=== PATIENT | male | born 1960 | race Caucasian/White ===

== ENCOUNTER 2021-02-04 22:00 | Emergency (ER) | payer MEDICAID ==
[~2021-02-04] VITALS: Ht 180.3 cm; Wt 88.5 kg
[2021-02-04 23:35] LABS: Basophils # (auto) 0 10 ^3/uL (0-0.2); Basophils % (auto) 0.7 % (0.0-2.0); Eosinophils # (auto) 0.1 10 ^3/uL (0-0.8); Eosinophils % (auto) 2.4 % (0.0-7.0); Hemoglobin 13.4 g/dL (13.5-17.5); Lymphocytes # (auto) 0.9 10 ^3/uL (0.4-5.4); Lymphocytes % (auto) 18.5 % (10.0-50.0); Mean Corpuscular Hemoglobin 30.9 pg (28.0-32.0); Mean Corpuscular Hgb Conc. 33.4 g/dL (32.0-36.0); Mean Corpuscular Volume 92.4 fL (80.0-100.0); Monocytes # (auto) 0.6 10 ^3/uL (0-1.3); Monocytes % (auto) 12.6 % (0.0-12.0); Neutrophils # (auto) 3.2 10 ^3/uL (1.6-8.6); Neutrophils % (auto) 65.8 % (37.0-80.0); Nucleated Red Blood Cells % 0.1 %; Red Blood Cells 4.33 10^6/uL (4.5-5.90); Red Cell Distribution Width 14.1 % (11.8-14.3); White Blood Cell 4.8 10^3/uL (4.4-10.8)
[2021-02-04 23:55] LABS: Albumin 2.9 g/dL (3.4-5.0); Calcium 8.8 mg/dL (8.5-10.1)
[2021-02-04 23:58] LABS: BUN/Creatinine Ratio 17.6
[2021-02-05] LABS: Total Protein 8.3 g/dL (6.4-8.2)
[2021-02-05 02:00] VITALS: BP 178/96
[2021-02-05] MEDS ORDERED: DOXY-286 PO (02:45)
[2021-02-05] MEDS ORDERED: BAC09TP TOP (02:45)
[2021-02-05] MEDS ORDERED: BACITRACIN TOP OINT 1 UD PKG TOP ONE (03:00)
[2021-02-05] MEDS ORDERED: DOXYCYCLINE 100 MG TAB/CAP PO ONE (03:00)
== END 2021-02-05 03:27 | disposition home or self-care (01) ==
LOC: ER 22:01
DX: L03.116 Cellulitis of left lower limb (principal); I10 Essential (primary) hypertension; F17.210 Nicotine dependence, cigarettes, uncomplicated; F12.10 Cannabis abuse, uncomplicated; F15.10 Other stimulant abuse, uncomplicated
CPT/HCPCS: 36415; 80053; 83605; 85025; 87040

== ENCOUNTER 2022-09-08 13:47 | Emergency (ER) | payer MEDICAID ==
[~2022-09-08 13:47] MED LIST: BAC09TP TOP
[2022-09-08] MEDS ORDERED: DexAMETHasone SOD PHOS 10MG/1ML VIAL INJ ONE (13:57)
[2022-09-08] MEDS ORDERED: DexAMETHasone SOD PHOS 10MG/1ML VIAL INJ IV ONE (14:00)
[2022-09-08] MEDS ORDERED: ALBUTEROL SULF 2.5 MG/0.5ML(0.5%) NEB SOLN NEB ONE (14:00)
[2022-09-08] MEDS ORDERED: SODIUM CHLORIDE 0.9% 1,000 ML IVB ONE (14:00)
[2022-09-08] MEDS ORDERED: DOXYCYCLINE 100MG/250ML 250 ML IV ONE (14:00)
[2022-09-08] MEDS ORDERED: IPRATROPIUM BROM 0.5 MG/2.5ML INH SOL NEB ONE (14:00)
[2022-09-08] MEDS ORDERED: METOPROLOL TARTRATE 1MG/1ML-5ML VIAL IV ONE (14:15)
[2022-09-08 14:17] LABS: Basophils # (auto) 0 10 ^3/uL (0-0.2); Eosinophils # (auto) 0 10 ^3/uL (0-0.8); Hematocrit 45.6 % (41.0-53.0); Lymphocytes # (auto) 0.7 10 ^3/uL (0.4-5.4); Lymphocytes % (auto) 7.4 % (10.0-50.0); Mean Corpuscular Hemoglobin 31.6 pg (28.0-32.0); Mean Corpuscular Hgb Conc. 32.8 g/dL (32.0-36.0); Mean Corpuscular Volume 96.3 fL (80.0-100.0); Monocytes # (auto) 0.4 10 ^3/uL (0-1.3); Monocytes % (auto) 4.5 % (0.0-12.0); Neutrophils # (auto) 8.7 10 ^3/uL (1.6-8.6); Neutrophils % (auto) 88.1 % (37.0-80.0); Nucleated Red Blood Cells % 0.1 %; Red Blood Cells 4.74 10^6/uL (4.5-5.90); Red Cell Distribution Width 16.1 % (11.8-14.3); White Blood Cell 9.8 10^3/uL (4.4-10.8)
[2022-09-08 14:33] LABS: INR 1.28 (0.9-1.15); Partial Thromboplastin Time 32.4 sec (24.6-33.4)
[2022-09-08 14:37] LABS: Albumin 3.1 g/dL (3.4-5.0); Calcium 8.2 mg/dL (8.5-10.1); Magnesium 1.6 mg/dL (1.6-2.6); Potassium 3.6 mmol/L (3.5-5.1)
[2022-09-08 14:40] LABS: BUN/Creatinine Ratio 11.5 (10.0-20.0); Bilirubin, Total 3.8 mg/dL (0.2-1.0); Total Protein 8.4 g/dL (6.4-8.2)
[2022-09-08] MEDS ORDERED: LORazepam 2MG/ML-1ML VIAL ONE (14:50)
[2022-09-08 14:53] LABS: Lactic Acid w/Reflex 4.6 mmol/L (0.4-2.0)
[2022-09-08] MEDS ORDERED: LORazepam 2MG/ML-1ML VIAL IV ONE (15:00)
[2022-09-08] MEDS: MAGNESIUM SULFATE 1GM/100ML 100 ML IV SCH ×3 (15:08→15:29)
[2022-09-08] MEDS ORDERED: FUROSEMIDE 40 MG/4 ML VIAL IV ONE (15:45)
[2022-09-08 15:53] VITALS: BP 105/60
== END 2022-09-08 16:25 | disposition left against medical advice (07) ==
LOC: EDBD 13:47 → ER 13:47
DX: R06.02 Shortness of breath (principal); I48.91 Unspecified atrial fibrillation; J44.9 Chronic obstructive pulmonary disease, unspecified; I25.2 Old myocardial infarction; I10 Essential (primary) hypertension; E78.5 Hyperlipidemia, unspecified; F15.10 Other stimulant abuse, uncomplicated; F12.10 Cannabis abuse, uncomplicated; F17.210 Nicotine dependence, cigarettes, uncomplicated; Z88.5 Allergy status to narcotic agent
CPT/HCPCS: 36415; 36600; 71045; 80053; 82805; 83605; 83735; 83880; 84484; 85025; 85379; 85610; 85730; 87040; 93005; 94660; 96365; 96368; 96375; 99285; J1100; J1940; J2060; J3475; J3490; J7644

== ENCOUNTER 2022-09-09 00:23 | Inpatient (IN) | payer MEDICAID ==
[2022-09-09] VITALS (36 sets, daily range): BP systolic 81–171; BP diastolic 6–67
[~2022-09-09] VITALS: Ht 180.3 cm; Wt 115.6 kg
[2022-09-09] MEDS ORDERED: ALBUTEROL SULF 2.5 MG/0.5ML(0.5%) NEB SOLN ONE (00:26)
[2022-09-09] MEDS ORDERED: IPRATROPIUM BROM 0.5 MG/2.5ML INH SOL ONE (00:27)
[2022-09-09] MEDS ORDERED: NITROGLYCERIN 2% OINT 1GM PKG TD STA (00:40)
[2022-09-09] MEDS ORDERED: MORPHINE SULFATE 4 MG/ML SYR/VIAL IV ONE (00:45)
[2022-09-09] MEDS ORDERED: ASPirin 81 mg TAB PO ONE (00:45)
[2022-09-09] MEDS ORDERED: ONDANSETRON HCL 4 MG/2 ML VIAL IV ONE ×2 (00:45→07:15)
[2022-09-09] MEDS ORDERED: FUROSEMIDE 40 MG/4 ML VIAL IV ONE ×2 (00:45→04:00)
[2022-09-09] MEDS ORDERED: ACETAMINOPHEN 325 MG TAB PO PRN (00:45)
[2022-09-09] MEDS ORDERED: VANCOMYCIN 1GM/250ML 250 ML IV ONE ×2 (01:00→10:00)
[2022-09-09] MEDS ORDERED: diphenhdrAMINE HCL 50 MG/1 ML VL IV ONE ×2 (01:15)
[2022-09-09] MEDS: PIPERACILLIN-TAZOB 3.375GM 100 ML IV SCH ×4 (01:23→21:15)
[2022-09-09] MEDS ORDERED: DEXTROSE 10% 250 ML IV ONE ×2 (01:35→08:27)
[2022-09-09 01:41] LABS: Basophils # (auto) 0 10 ^3/uL (0-0.2); Basophils % (auto) 0.3 % (0.0-2.0); Eosinophils # (auto) 0 10 ^3/uL (0-0.8); Hematocrit 46.1 % (41.0-53.0); Hemoglobin 14.9 g/dL (13.5-17.5); Lymphocytes # (auto) 1.2 10 ^3/uL (0.4-5.4); Lymphocytes % (auto) 9.9 % (10.0-50.0); Mean Corpuscular Hemoglobin 31.6 pg (28.0-32.0); Mean Corpuscular Hgb Conc. 32.3 g/dL (32.0-36.0); Mean Corpuscular Volume 97.9 fL (80.0-100.0); Monocytes # (auto) 0.3 10 ^3/uL (0-1.3); Monocytes % (auto) 2.4 % (0.0-12.0); Neutrophils # (auto) 10.5 10 ^3/uL (1.6-8.6); Neutrophils % (auto) 87.4 % (37.0-80.0); Nucleated Red Blood Cells % 0.2 %; Red Blood Cells 4.71 10^6/uL (4.5-5.90); Red Cell Distribution Width 16.2 % (11.8-14.3)
[2022-09-09] MEDS ORDERED: DEXTROSE 10% 250 ML IV SCH (01:45)
[2022-09-09 01:55] LABS: INR 1.56 (0.9-1.15); Partial Thromboplastin Time 38.3 sec (24.6-33.4)
[2022-09-09] MEDS ORDERED: KETOROLAC TROMETH 30 MG/ML 1ML VIAL IV ONE (02:00)
[2022-09-09] MEDS ORDERED: D5W/SOD CHLO 0.9% 1,000 ML IV ONE (02:15)
[2022-09-09] MEDS ORDERED: DEXTROSE (50%) 50ML SYRG IV ONE (02:15)
[2022-09-09] MEDS ORDERED: SODIUM BICARBONATE 8.4 % INJ 50ML VIAL IV ONE ×3 (02:15→11:30)
[2022-09-09] MEDS ORDERED: ALBUMIN 25% 100 ML IV ONE (02:15)
[2022-09-09 02:36] LABS: Alanine Aminotransferase 378 U/L (16-61); Albumin 3.2 g/dL (3.4-5.0); Anion Gap 19 (5-15); Aspartate Aminotransferase 754 U/L (15-37); BUN/Creatinine Ratio 11.2 (10.0-20.0); Blood Urea Nitrogen 35 mg/dL (7-18); Calcium 8.7 mg/dL (8.5-10.1); Carbon Dioxide 12 mmol/L (21-32); Chloride 97 mmol/L (98-107); GFR African American 26 mL/min; GFR Non-African American 22 mL/min; Magnesium 2.3 mg/dL (1.6-2.6); Potassium 4.6 mmol/L (3.5-5.1); Sodium 128 mmol/L (136-145)
[2022-09-09 02:38] LABS: Alkaline Phosphatase 106 U/L (45-117); Bilirubin, Total 6.6 mg/dL (0.2-1.0); Lactic Acid w/Reflex 9.6 mmol/L (0.4-2.0); Total Protein 8.9 g/dL (6.4-8.2)
[2022-09-09 02:51] LABS: Blood Alcohol < 3.0 mg/dL (0-5)
[2022-09-09 02:52] LABS: Glucose 48 mg/dL (74-106)
[2022-09-09] MEDS: InsuLIN REG 1unit/0.01ml Soln (100units/ml) SC SCH ×5 (04:00→20:00)
[2022-09-09] MEDS ORDERED: LACTULOSE 20Gm/30ML SOLN PO ONE (04:00)
[2022-09-09] MEDS ORDERED: IBUPROFEN 600 MG TAB PO PRN (04:00)
[2022-09-09] MEDS ORDERED: DEXTROSE (50%) 50ML SYRG IV PRN (04:00)
[2022-09-09] MEDS ORDERED: ONDANSETRON HCL 4 MG/2 ML VIAL IV PRN (04:00)
[2022-09-09] MEDS: ACCU-CHEK COMFORT CURVE STRIP VI SCH ×5 (04:14→21:12)
[2022-09-09 04:22] LABS: Basophils # (auto) 0 10 ^3/uL (0-0.2); Basophils % (auto) 0.2 % (0.0-2.0); Eosinophils # (auto) 0 10 ^3/uL (0-0.8); Eosinophils % (auto) 0.1 % (0.0-7.0); Hematocrit 45.6 % (41.0-53.0); Hemoglobin 14.7 g/dL (13.5-17.5); Lymphocytes # (auto) 1.6 10 ^3/uL (0.4-5.4); Lymphocytes % (auto) 14.7 % (10.0-50.0); Mean Corpuscular Hgb Conc. 32.2 g/dL (32.0-36.0); Mean Corpuscular Volume 99.4 fL (80.0-100.0); Monocytes # (auto) 0.5 10 ^3/uL (0-1.3); Monocytes % (auto) 4.2 % (0.0-12.0); Neutrophils # (auto) 8.7 10 ^3/uL (1.6-8.6); Neutrophils % (auto) 80.8 % (37.0-80.0); Nucleated Red Blood Cells % 0.2 %; Red Blood Cells 4.59 10^6/uL (4.5-5.90); Red Cell Distribution Width 16.2 % (11.8-14.3); White Blood Cell 10.8 10^3/uL (4.4-10.8)
[2022-09-09] MEDS ORDERED: HYDROmorphone HCL 2 MG/ML VL/or syr IV ONE ×2 (04:30→07:15)
[2022-09-09 04:47] LABS: Albumin 3.5 g/dL (3.4-5.0); Potassium 4.4 mmol/L (3.5-5.1)
[2022-09-09 04:55] LABS: BUN/Creatinine Ratio 10.6 (10.0-20.0); Bilirubin, Total 6.6 mg/dL (0.2-1.0); Total Protein 8.5 g/dL (6.4-8.2)
[2022-09-09] MEDS ORDERED: NITROGLYCERIN 0.4 MG SL TAB SL PRN (05:15)
[2022-09-09] MEDS ORDERED: DexAMETHasone INJECTION 10 MG in SODIUM CHL 3% 500 ML IV SCH (06:00)
[2022-09-09] MEDS ORDERED: SODIUM CHLORIDE 0.9% 500 ML IV ONE ×3 (06:00→12:15)
[2022-09-09] MEDS ORDERED: DEXTROSE 10% 250 ML Bag IV ONE (08:45)
[2022-09-09] MEDS ORDERED: BUMETANIDE 2.5mg/10ml (0.25 mg/ml) INJ IV ONE ×2 (08:45→18:00)
[2022-09-09] MEDS ORDERED: VANCOMYCIN PER PHARMACY 0 MG IV SCH (09:00)
[2022-09-09] MEDS: SODIUM BICARBONATE 50ML VIAL 150 ML in D5W 5% 1,000 ML IV SCH ×2 (09:27→21:13)
[2022-09-09 09:44] LABS: Urine Bacteria FEW /hpf (None Seen); Urine Blood 3+ /uL (Negative); Urine Specific Gravity 1.017 (1.001-1.035); Urine WBC 106 /hpf (0 - 3)
[2022-09-09 09:49] LABS: Alcohol, Urine < 3.0 mg/dL (0-10); Amphetamine Screen, Urine POSITIVE (NEGATIVE); Barbiturate Scree,Urine NEGATIVE (NEGATIVE); Benzodiazephine Screen, Urine NEGATIVE (NEGATIVE); Cannabinoid Screen, Urine POSITIVE (NEGATIVE); Cocaine Screen, Urine NEGATIVE (NEGATIVE); Opiate Scree,Urine NEGATIVE (NEGATIVE); Phencyclidine Screen, Urine NEGATIVE (NEGATIVE)
[2022-09-09] MEDS ORDERED: VANCOMYCIN 1GM/250ML 250 ML IV SCH (10:00)
[2022-09-09] MEDS ORDERED: FAMOTIDINE (10MG/ML) 2ML VL IV SCH (10:00)
[2022-09-09] MEDS ORDERED: HALOPERIDOL LACTATE 5 MG/ML INJ VIAL IM ONE (11:00)
[2022-09-09] MEDS ORDERED: ETOMIDATE (2MG/ML) 20ML VIAL IV ONE ×2 (11:00→11:03)
[2022-09-09] MEDS ORDERED: ROCURONIUM 10MG/ML 10ML VIAL IV ONE ×2 (11:00→11:03)
[2022-09-09] MEDS ORDERED: PROPOFOL 100 ML IV ONE (11:03)
[2022-09-09] MEDS ORDERED: HALOPERIDOL LACTATE 5 MG/ML INJ VIAL ONE (11:04)
[2022-09-09] MEDS: PROPOFOL 100 ML IV SCH ×2 (11:24→22:09)
[2022-09-09] MEDS ORDERED: EPINEPHrine HCL 1 MG/10 ML SYRG IV ONE ×2 (11:30→18:22)
[2022-09-09] MEDS ORDERED: ATROPINE SULF 1 MG/10ml SYR IV ONE ×2 (11:30→18:22)
[2022-09-09] MEDS ORDERED: PANTOPRAZOLE 40 MG/10 ML VIAL INJ IV ONE (11:30)
[2022-09-09] MEDS ORDERED: ALBUTEROL SULF 2.5 MG/0.5ML(0.5%) NEB SOLN NEB ONE (11:45)
[2022-09-09] MEDS ORDERED: EPINEPHrine HCL 250 ML IV SCH (11:45)
[2022-09-09] MEDS ORDERED: IPRATROPIUM BROM 0.5 MG/2.5ML INH SOL NEB ONE (11:45)
[2022-09-09] MEDS ORDERED: DexAMETHasone SOD PHOS 10MG/1ML VIAL INJ IV ONE (11:45)
[2022-09-09] MEDS: MILRINONE 20MG/100ML 100 ML IV SCH ×3 (12:15→22:52)
[2022-09-09 12:18] LABS: Lactic Acid w/Reflex 10.2 mmol/L (0.4-2.0)
[2022-09-09] MEDS: fentaNYL Drip 2500mCg/250mlNS 250 ML IV SCH (12:23)
[2022-09-09] MEDS: FUROSEMIDE 40 MG/4 ML VIAL IV SCH (12:40)
[2022-09-09] MEDS: ASPirin 81 mg TAB PO SCH (12:41)
[2022-09-09] MEDS: HEPARIN SODIUM (PORCINE) 5000 UNITS/ML 1ML VIAL SC SCH ×2 (12:42→22:00)
[2022-09-09] MEDS: LACTULOSE 20Gm/30ML SOLN PO SCH ×4 (14:00→21:15)
[2022-09-09] MEDS ORDERED: NOREPINEPHRINE 8 MG/250ML KIT 250 ML IV ONE ×2 (15:15→15:18)
[2022-09-09] MEDS: NOREPINEPHRINE 8 MG/250ML KIT 250 ML IV SCH (15:28)
[2022-09-09] MEDS: PANTOPRAZOLE 40mg/50ML NS AE 50 ML IV SCH ×2 (16:21→21:12)
[2022-09-09] MEDS ORDERED: SODIUM BICARBONATE 8.4% INJ 50ML SYRINGE IV ONE (18:22)
[2022-09-09 19:33] LABS: Calcium 7.1 mg/dL (8.5-10.1); Potassium 4.8 mmol/L (3.5-5.1)
[2022-09-09 19:35] LABS: BUN/Creatinine Ratio 10.4 (10.0-20.0)
[2022-09-10] VITALS (101 sets, daily range): BP systolic 79–127; BP diastolic 54–76
[2022-09-10] MEDS: ACCU-CHEK COMFORT CURVE STRIP VI SCH ×6 (00:29→20:30)
[2022-09-10] MEDS: PIPERACILLIN-TAZOB 3.375GM 100 ML IV SCH ×3 (00:30→14:11)
[2022-09-10] MEDS: PANTOPRAZOLE 40mg/50ML NS AE 50 ML IV SCH ×6 (00:43→23:14)
[2022-09-10] MEDS: NOREPINEPHRINE 8 MG/250ML KIT 250 ML IV SCH ×3 (00:43→17:25)
[2022-09-10] MEDS: LACTULOSE 20Gm/30ML SOLN PO SCH ×6 (02:00→22:27)
[2022-09-10] MEDS: InsuLIN REG 1unit/0.01ml Soln (100units/ml) SC SCH ×6 (03:43→20:00)
[2022-09-10 04:52] LABS: Basophils # (auto) 0 10 ^3/uL (0-0.2); Basophils % (auto) 0.1 % (0.0-2.0); Eosinophils # (auto) 0 10 ^3/uL (0-0.8); Eosinophils % (auto) 0.1 % (0.0-7.0); Hematocrit 40.7 % (41.0-53.0); Hemoglobin 13.6 g/dL (13.5-17.5); Lymphocytes # (auto) 0.9 10 ^3/uL (0.4-5.4); Lymphocytes % (auto) 4.9 % (10.0-50.0); Mean Corpuscular Hemoglobin 31.6 pg (28.0-32.0); Mean Corpuscular Hgb Conc. 33.3 g/dL (32.0-36.0); Mean Corpuscular Volume 94.8 fL (80.0-100.0); Monocytes # (auto) 0.4 10 ^3/uL (0-1.3); Monocytes % (auto) 2.1 % (0.0-12.0); Neutrophils # (auto) 16.5 10 ^3/uL (1.6-8.6); Neutrophils % (auto) 92.8 % (37.0-80.0); Nucleated Red Blood Cells % 0.3 %; White Blood Cell 17.8 10^3/uL (4.4-10.8)
[2022-09-10 05:36] LABS: Albumin 2.4 g/dL (3.4-5.0); BUN/Creatinine Ratio 10.8 (10.0-20.0); Calcium 6.4 mg/dL (8.5-10.1)
[2022-09-10 05:45] LABS: Total Protein 6.4 g/dL (6.4-8.2)
[2022-09-10] MEDS: PROPOFOL 100 ML IV SCH ×3 (07:31→22:28)
[2022-09-10] MEDS: SODIUM BICARBONATE 50ML VIAL 150 ML in D5W 5% 1,000 ML IV SCH ×2 (08:21→12:50)
[2022-09-10] MEDS: MILRINONE 20MG/100ML 100 ML IV SCH (10:00)
[2022-09-10] MEDS: ASPirin 81 mg TAB PO SCH (10:00)
[2022-09-10] MEDS: HEPARIN SODIUM (PORCINE) 5000 UNITS/ML 1ML VIAL SC SCH ×2 (10:00→22:00)
[2022-09-10] MEDS: FUROSEMIDE 40 MG/4 ML VIAL IV SCH (10:39)
[2022-09-10] MEDS: fentaNYL Drip 2500mCg/250mlNS 250 ML IV SCH ×2 (12:15→19:46)
[2022-09-10] MEDS ORDERED: FUROSEMIDE 100 MG/10ML VIAL IV ONE ×2 (12:15→12:45)
[2022-09-10 14:55] LABS: Anion Gap 16 (5-15); Blood Urea Nitrogen 51 mg/dL (7-18); Carbon Dioxide 20 mmol/L (21-32); Chloride 100 mmol/L (98-107); GFR African American 18 mL/min; GFR Non-African American 15 mL/min; Glucose 88 mg/dL (74-106); Potassium 3.8 mmol/L (3.5-5.1); Sodium 136 mmol/L (136-145)
[2022-09-10 16:35] LABS: Calcium < 6.0 mg/dL (8.5-10.1)
[2022-09-10] MEDS: IPRATROPIUM BROM 0.5 MG/2.5ML INH SOL NEB PRN ×2 (18:44→22:14)
[2022-09-10] MEDS: ALBUTEROL SULF 2.5 MG/0.5ML(0.5%) NEB SOLN NEB PRN ×2 (18:45→22:14)
[2022-09-10] MEDS: LINEZOLID 600MG/300ML 300 ML IV SCH (22:27)
[2022-09-11] VITALS (108 sets, daily range): BP systolic 58–134; BP diastolic 35–88
[2022-09-11] MEDS: ALBUTEROL SULF 2.5 MG/0.5ML(0.5%) NEB SOLN NEB PRN (02:15)
[2022-09-11] MEDS: IPRATROPIUM BROM 0.5 MG/2.5ML INH SOL NEB PRN (02:15)
[2022-09-11] MEDS: SODIUM BICARBONATE 50ML VIAL 150 ML in D5W 5% 1,000 ML IV SCH (02:27)
[2022-09-11] MEDS: LACTULOSE 20Gm/30ML SOLN PO SCH ×6 (02:40→22:00)
[2022-09-11] MEDS: ACCU-CHEK COMFORT CURVE STRIP VI SCH ×6 (02:41→20:38)
[2022-09-11] MEDS: InsuLIN REG 1unit/0.01ml Soln (100units/ml) SC SCH ×6 (02:41→20:00)
[2022-09-11] MEDS: PROPOFOL 100 ML IV SCH ×3 (04:15→19:14)
[2022-09-11 04:46] LABS: INR 1.65 (0.9-1.15); Partial Thromboplastin Time 38.2 sec (24.6-33.4)
[2022-09-11 04:51] LABS: Albumin 2.1 g/dL (3.4-5.0); Potassium 3.7 mmol/L (3.5-5.1)
[2022-09-11 05:00] LABS: BUN/Creatinine Ratio 11.1 (10.0-20.0); Total Protein 6.2 g/dL (6.4-8.2)
[2022-09-11 05:19] LABS: Calcium 5.6 mg/dL (8.5-10.1)
[2022-09-11] MEDS: PIPERACILLIN-TAZOB 3.375GM 100 ML IV SCH ×2 (05:57→14:02)
[2022-09-11] MEDS: NOREPINEPHRINE 8 MG/250ML KIT 250 ML IV SCH (05:58)
[2022-09-11] MEDS ORDERED: HYDROCORTISONE SOD SUCC 100 MG/2ML INJ VIAL IV SCH (06:00)
[2022-09-11] MEDS: PANTOPRAZOLE 40mg/50ML NS AE 50 ML IV SCH ×4 (08:15→19:15)
[2022-09-11] MEDS: HEPARIN SODIUM (PORCINE) 5000 UNITS/ML 1ML VIAL SC SCH ×2 (10:00→22:00)
[2022-09-11] MEDS: ASPirin 81 mg TAB PO SCH (10:00)
[2022-09-11 10:20] LABS: Cortisol,PM > 75.00 ug/dL (3.09-16.66)
[2022-09-11 10:21] LABS: Free T4 (Free Thyroxine) 0.56 ng/dL (0.89-1.76)
[2022-09-11] MEDS: FUROSEMIDE 40 MG/4 ML VIAL IV SCH (10:23)
[2022-09-11] MEDS: LINEZOLID 600MG/300ML 300 ML IV SCH ×2 (10:24→22:00)
[2022-09-11] MEDS ORDERED: DexAMETHasone SOD PHOS 10MG/1ML VIAL INJ IV SCH (17:00)
[2022-09-11] MEDS ORDERED: CLINIMIX PER PHARMACY 0 ML IV SCH (17:00)
[2022-09-11] MEDS ORDERED: AMINO ACID INFUSION IN D10W 1,000 ML IV NR (20:00)
[2022-09-12] VITALS (107 sets, daily range): BP systolic 75–171; BP diastolic 47–95
[2022-09-12] MEDS: PANTOPRAZOLE 40mg/50ML NS AE 50 ML IV SCH ×5 (00:43→21:49)
[2022-09-12] MEDS: SODIUM BICARBONATE 50ML VIAL 150 ML in D5W 5% 1,000 ML IV SCH ×2 (01:50→18:05)
[2022-09-12] MEDS: ACCU-CHEK COMFORT CURVE STRIP VI SCH ×7 (02:53→23:19)
[2022-09-12] MEDS: PIPERACILLIN-TAZOB 3.375GM 100 ML IV SCH ×2 (02:53→14:30)
[2022-09-12] MEDS: InsuLIN REG 1unit/0.01ml Soln (100units/ml) SC SCH ×7 (02:55→23:19)
[2022-09-12] MEDS: PROPOFOL 100 ML IV SCH ×5 (02:56→21:54)
[2022-09-12] MEDS: LACTULOSE 20Gm/30ML SOLN PO SCH ×6 (02:56→21:49)
[2022-09-12 04:27] LABS: Hematocrit 34.6 % (41.0-53.0); Hemoglobin 12.1 g/dL (13.5-17.5)
[2022-09-12 04:53] LABS: Magnesium 2.5 mg/dL (1.6-2.6); Potassium 4.2 mmol/L (3.5-5.1)
[2022-09-12 04:58] LABS: % Iron Saturation 33.1 % (20-55); BUN/Creatinine Ratio 11.5 (10.0-20.0); Bilirubin, Total 10.3 mg/dL (0.2-1.0); Phosphorus 6.9 mg/dL (2.5-4.90); Total Protein 6.2 g/dL (6.4-8.2)
[2022-09-12 05:04] LABS: Calcium 5.6 mg/dL (8.5-10.1)
[2022-09-12] MEDS: fentaNYL Drip 2500mCg/250mlNS 250 ML IV SCH (05:34)
[2022-09-12] MEDS ORDERED: SODIUM CHL 0.9% 1000 ML BAG XX ONE (07:00)
[2022-09-12] MEDS: NOREPINEPHRINE 8 MG/250ML KIT 250 ML IV SCH (08:21)
[2022-09-12] MEDS ORDERED: CALCIUM GLUC 1,000mg/50ml-NS 50 ML IV ONE (10:45)
[2022-09-12] MEDS: ASPirin 81 mg TAB PO SCH (14:28)
[2022-09-12] MEDS: HEPARIN SODIUM (PORCINE) 5000 UNITS/ML 1ML VIAL SC SCH ×2 (14:29→22:18)
[2022-09-12] MEDS: FUROSEMIDE 40 MG/4 ML VIAL IV SCH (14:29)
[2022-09-12] MEDS: LINEZOLID 600MG/300ML 300 ML IV SCH ×2 (14:30→21:49)
[2022-09-12] MEDS ORDERED: AMINO ACID INFUSION IN D10W 1,000 ML IV NR (20:00)
[2022-09-12] MEDS ORDERED: EPOETIN ALFA-EPBX 10,000 UNIT/1ML VIAL SC ONE (21:00)
[2022-09-13] VITALS (105 sets, daily range): BP systolic 75–196; BP diastolic 8–96
[2022-09-13] MEDS: PANTOPRAZOLE 40mg/50ML NS AE 50 ML IV SCH ×4 (00:56→16:56)
[2022-09-13] MEDS: PROPOFOL 100 ML IV SCH ×7 (01:02→21:59)
[2022-09-13] MEDS: LACTULOSE 20Gm/30ML SOLN PO SCH ×6 (01:32→21:59)
[2022-09-13] MEDS: PIPERACILLIN-TAZOB 3.375GM 100 ML IV SCH (01:33)
[2022-09-13] MEDS: ACCU-CHEK COMFORT CURVE STRIP VI SCH ×5 (04:00→20:12)
[2022-09-13] MEDS: InsuLIN REG 1unit/0.01ml Soln (100units/ml) SC SCH ×5 (04:00→20:00)
[2022-09-13] MEDS: NOREPINEPHRINE 8 MG/250ML KIT 250 ML IV SCH (04:00)
[2022-09-13] MEDS: fentaNYL Drip 2500mCg/250mlNS 250 ML IV SCH (04:15)
[2022-09-13 04:27] LABS: Hematocrit 35.4 % (41.0-53.0); Hemoglobin 12.3 g/dL (13.5-17.5); Mean Corpuscular Hemoglobin 31.6 pg (28.0-32.0); Mean Corpuscular Hgb Conc. 34.6 g/dL (32.0-36.0); Mean Corpuscular Volume 91.1 fL (80.0-100.0); Red Blood Cells 3.88 10^6/uL (4.5-5.90); Red Cell Distribution Width 15.3 % (11.8-14.3); White Blood Cell 19.3 10^3/uL (4.4-10.8)
[2022-09-13 04:44] LABS: Basophils % (manual) 0 (0.0-2.0); Blast Cells 0; Eosinophils % (manual) 0 (0-7); Potassium 4.5 mmol/L (3.5-5.1); Promyelocytes % 0; Reactive Lymphocytes 0
[2022-09-13 04:50] LABS: Calcium 6.5 mg/dL (8.5-10.1); Magnesium 2.6 mg/dL (1.6-2.6); Phosphorus 5.8 mg/dL (2.5-4.90); Total Protein 6.5 g/dL (6.4-8.2)
[2022-09-13] MEDS: ALBUTEROL SULF 2.5 MG/0.5ML(0.5%) NEB SOLN NEB PRN ×3 (06:31→13:48)
[2022-09-13] MEDS: IPRATROPIUM BROM 0.5 MG/2.5ML INH SOL NEB PRN ×3 (06:31→13:49)
[2022-09-13 07:47] LABS: Band Neutrophils % (manual) 13; Lymphocytes % (manual) 10 (10.0-50.0); Metamyelocytes % 1; Monocytes % (manual) 8 (0-12); Myelocytes % 2
[2022-09-13] MEDS ORDERED: SODIUM CHL 0.9% 1000 ML BAG XX ONE (09:15)
[2022-09-13] MEDS: ASPirin 81 mg TAB PO SCH (09:39)
[2022-09-13] MEDS: LINEZOLID 600MG/300ML 300 ML IV SCH (09:39)
[2022-09-13] MEDS: FUROSEMIDE 40 MG/4 ML VIAL IV SCH (09:40)
[2022-09-13] MEDS: HEPARIN SODIUM (PORCINE) 5000 UNITS/ML 1ML VIAL SC SCH ×2 (09:40→22:00)
[2022-09-13 13:52] LABS: Hepatitis A Ab IgM Negative; Hepatitis B Core IgM Negative
[2022-09-13 13:53] LABS: Hepatitis C Antibody Negative (Negative)
[2022-09-13] MEDS ORDERED: VANCOMYCIN PER PHARMACY 0 MG IV SCH (15:15)
[2022-09-13] MEDS ORDERED: VANCOMYCIN 1GM/250ML 250 ML IV ONE ×2 (17:00→19:00)
[2022-09-13] MEDS: AMINO ACID INFUSION IN D10W 1,000 ML IV NR (20:13)
[2022-09-13] MEDS ORDERED: EPOETIN ALFA-EPBX 10,000 UNIT/1ML VIAL SC ONE (21:00)
[2022-09-13] MEDS: MEROPENEM 1 GM in SODIUM CHL 0.9% 100 ML IV SCH (22:01)
[2022-09-14] VITALS (93 sets, daily range): BP systolic 83–197; BP diastolic 52–93
[2022-09-14] MEDS: PANTOPRAZOLE 40mg/50ML NS AE 50 ML IV SCH ×5 (00:14→19:38)
[2022-09-14] MEDS: ACCU-CHEK COMFORT CURVE STRIP VI SCH ×7 (00:21→23:32)
[2022-09-14] MEDS: PROPOFOL 100 ML IV SCH ×5 (02:08→19:38)
[2022-09-14] MEDS: LACTULOSE 20Gm/30ML SOLN PO SCH ×6 (02:08→20:52)
[2022-09-14] MEDS: fentaNYL Drip 2500mCg/250mlNS 250 ML IV SCH (02:21)
[2022-09-14] MEDS: InsuLIN REG 1unit/0.01ml Soln (100units/ml) SC SCH ×7 (03:40→23:32)
[2022-09-14 04:42] LABS: Hematocrit 35.1 % (41.0-53.0); Hemoglobin 12.1 g/dL (13.5-17.5); Mean Corpuscular Hemoglobin 31.5 pg (28.0-32.0); Mean Corpuscular Hgb Conc. 34.4 g/dL (32.0-36.0); Mean Corpuscular Volume 91.5 fL (80.0-100.0); Red Blood Cells 3.83 10^6/uL (4.5-5.90); Red Cell Distribution Width 15.7 % (11.8-14.3); White Blood Cell 18.3 10^3/uL (4.4-10.8)
[2022-09-14 04:46] LABS: Basophils % (manual) 0 (0.0-2.0); Blast Cells 0; Promyelocytes % 0; Reactive Lymphocytes 0
[2022-09-14 04:52] LABS: Albumin 1.9 g/dL (3.4-5.0); Calcium 7.2 mg/dL (8.5-10.1); Magnesium 2.4 mg/dL (1.6-2.6); Potassium 4.2 mmol/L (3.5-5.1)
[2022-09-14 04:56] LABS: BUN/Creatinine Ratio 11.7 (10.0-20.0); Bilirubin, Direct 8.8 mg/dL (0-0.2); Bilirubin, Total 10.5 mg/dL (0.2-1.0); Phosphorus 6.3 mg/dL (2.5-4.90); Total Protein 6.6 g/dL (6.4-8.2)
[2022-09-14 05:09] LABS: Band Neutrophils % (manual) 8; Eosinophils % (manual) 1 (0-7); Lymphocytes % (manual) 4 (10.0-50.0); Metamyelocytes % 1; Monocytes % (manual) 4 (0-12); Myelocytes % 2
[2022-09-14] MEDS ORDERED: SODIUM CHL 0.9% 1000 ML BAG XX ONE (07:00)
[2022-09-14] MEDS: ASPirin 81 mg TAB PO SCH (09:58)
[2022-09-14] MEDS: FUROSEMIDE 40 MG/4 ML VIAL IV SCH (09:58)
[2022-09-14] MEDS: HEPARIN SODIUM (PORCINE) 5000 UNITS/ML 1ML VIAL SC SCH ×2 (10:00→20:56)
[2022-09-14] MEDS: NOREPINEPHRINE 8 MG/250ML KIT 250 ML IV SCH (15:15)
[2022-09-14] MEDS: MEROPENEM 1 GM in SODIUM CHL 0.9% 100 ML IV SCH (19:20)
[2022-09-14] MEDS: AMINO ACID INFUSION IN D10W 1,000 ML IV NR (19:39)
[2022-09-14] MEDS ORDERED: EPOETIN ALFA-EPBX 10,000 UNIT/1ML VIAL SC ONE (21:00)
[2022-09-15] VITALS (102 sets, daily range): BP systolic 86–133; BP diastolic 52–72
[2022-09-15] MEDS: PROPOFOL 100 ML IV SCH ×6 (00:21→22:48)
[2022-09-15] MEDS: PANTOPRAZOLE 40mg/50ML NS AE 50 ML IV SCH ×5 (00:21→19:49)
[2022-09-15] MEDS: ACCU-CHEK COMFORT CURVE STRIP VI SCH ×6 (03:50→23:59)
[2022-09-15] MEDS: LACTULOSE 20Gm/30ML SOLN PO SCH ×6 (03:50→21:13)
[2022-09-15] MEDS: InsuLIN REG 1unit/0.01ml Soln (100units/ml) SC SCH ×6 (03:53→23:59)
[2022-09-15] MEDS: fentaNYL Drip 2500mCg/250mlNS 250 ML IV SCH (03:59)
[2022-09-15 04:22] LABS: Albumin 1.8 g/dL (3.4-5.0); BUN/Creatinine Ratio 12.6 (10.0-20.0); Calcium 7.9 mg/dL (8.5-10.1); Magnesium 2.5 mg/dL (1.6-2.6); Potassium 4.3 mmol/L (3.5-5.1)
[2022-09-15 04:25] LABS: Bilirubin, Total 11.7 mg/dL (0.2-1.0); Phosphorus 5.8 mg/dL (2.5-4.90); Total Protein 6.2 g/dL (6.4-8.2)
[2022-09-15 06:13] LABS: Hematocrit 36.2 % (41.0-53.0); Hemoglobin 12.1 g/dL (13.5-17.5); Mean Corpuscular Hemoglobin 31.1 pg (28.0-32.0); Mean Corpuscular Hgb Conc. 33.5 g/dL (32.0-36.0); Red Blood Cells 3.89 10^6/uL (4.5-5.90); Red Cell Distribution Width 15.3 % (11.8-14.3); White Blood Cell 19.7 10^3/uL (4.4-10.8)
[2022-09-15 06:35] LABS: Basophils % (manual) 0 (0.0-2.0); Blast Cells 0; Eosinophils % (manual) 0 (0-7); Metamyelocytes % 0; Myelocytes % 0; Promyelocytes % 0; Reactive Lymphocytes 0
[2022-09-15 08:35] LABS: Band Neutrophils % (manual) 4; Lymphocytes % (manual) 5 (10.0-50.0); Monocytes % (manual) 4 (0-12)
[2022-09-15] MEDS: ASPirin 81 mg TAB PO SCH (09:37)
[2022-09-15] MEDS: FUROSEMIDE 40 MG/4 ML VIAL IV SCH (09:37)
[2022-09-15] MEDS: HEPARIN SODIUM (PORCINE) 5000 UNITS/ML 1ML VIAL SC SCH (09:38)
[2022-09-15] MEDS ORDERED: VANCOMYCIN 500 MG in D5W 5% 100 ML IV ONE (10:30)
[2022-09-15] MEDS: NOREPINEPHRINE 8 MG/250ML KIT 250 ML IV SCH (12:57)
[2022-09-15] MEDS: MIDODRINE HCL 10 MG TAB NG SCH ×2 (14:45→21:15)
[2022-09-15] MEDS: ALBUMIN 25% 100 ML IV SCH ×2 (14:46→21:13)
[2022-09-15] MEDS: OCTREOTIDE ACETATE 100 MCG/ML VL SUBCUT SCH ×2 (14:46→21:15)
[2022-09-15] MEDS ORDERED: TPN PER PHARMACY 0 ML IV SCH (15:00)
[2022-09-15] MEDS: MEROPENEM 1 GM in SODIUM CHL 0.9% 100 ML IV SCH (17:45)
[2022-09-15] MEDS: IPRATROPIUM BROM 0.5 MG/2.5ML INH SOL NEB PRN (18:43)
[2022-09-15] MEDS: ALBUTEROL SULF 2.5 MG/0.5ML(0.5%) NEB SOLN NEB PRN (18:43)
[2022-09-15] MEDS: AMINO ACID INFUSION IN D10W 1,000 ML IV NR (19:49)
[2022-09-16] VITALS (107 sets, daily range): BP systolic 76–126; BP diastolic 47–72
[2022-09-16] MEDS: LACTULOSE 20Gm/30ML SOLN PO SCH ×6 (01:59→21:17)
[2022-09-16] MEDS: PANTOPRAZOLE 40mg/50ML NS AE 50 ML IV SCH ×3 (02:00→10:11)
[2022-09-16] MEDS: PROPOFOL 100 ML IV SCH ×5 (03:55→21:17)
[2022-09-16] MEDS: fentaNYL Drip 2500mCg/250mlNS 250 ML IV SCH (03:57)
[2022-09-16] MEDS: InsuLIN REG 1unit/0.01ml Soln (100units/ml) SC SCH ×6 (04:00→23:16)
[2022-09-16] MEDS: ACCU-CHEK COMFORT CURVE STRIP VI SCH ×6 (04:05→23:16)
[2022-09-16 04:29] LABS: Albumin 2.5 g/dL (3.4-5.0); Calcium 8.2 mg/dL (8.5-10.1); Magnesium 2.9 mg/dL (1.6-2.6); Potassium 4.9 mmol/L (3.5-5.1)
[2022-09-16 04:40] LABS: BUN/Creatinine Ratio 14.1 (10.0-20.0); Phosphorus 8.1 mg/dL (2.5-4.90); Total Protein 7.1 g/dL (6.4-8.2)
[2022-09-16 05:11] LABS: Hematocrit 34.7 % (41.0-53.0); Hemoglobin 11.7 g/dL (13.5-17.5); Mean Corpuscular Hemoglobin 31.1 pg (28.0-32.0); Mean Corpuscular Hgb Conc. 33.8 g/dL (32.0-36.0); Mean Corpuscular Volume 92.2 fL (80.0-100.0); Red Blood Cells 3.76 10^6/uL (4.5-5.90); Red Cell Distribution Width 15.9 % (11.8-14.3); White Blood Cell 21.4 10^3/uL (4.4-10.8)
[2022-09-16 05:15] LABS: Basophils % (manual) 0 (0.0-2.0); Blast Cells 0; Eosinophils % (manual) 0 (0-7); Metamyelocytes % 0; Myelocytes % 0; Promyelocytes % 0; Reactive Lymphocytes 0
[2022-09-16] MEDS: ALBUMIN 25% 100 ML IV SCH (05:37)
[2022-09-16] MEDS: MIDODRINE HCL 10 MG TAB NG SCH ×3 (05:37→21:18)
[2022-09-16] MEDS: OCTREOTIDE ACETATE 100 MCG/ML VL SUBCUT SCH ×3 (05:38→21:19)
[2022-09-16 08:16] LABS: Band Neutrophils % (manual) 6; Lymphocytes % (manual) 14 (10.0-50.0); Monocytes % (manual) 4 (0-12)
[2022-09-16] MEDS: FUROSEMIDE 40 MG/4 ML VIAL IV SCH (10:10)
[2022-09-16] MEDS: NOREPINEPHRINE 8 MG/250ML KIT 250 ML IV SCH (10:11)
[2022-09-16] MEDS ORDERED: TPN PER PHARMACY 0 ML IV SCH (11:00)
[2022-09-16] MEDS: METOCLOPRAMIDE HCL 5MG/ml INJ 2ml VIAL IV SCH ×2 (13:44→21:18)
[2022-09-16] MEDS: MEROPENEM 1 GM in SODIUM CHL 0.9% 100 ML IV SCH (17:42)
[2022-09-16] MEDS ORDERED: TPN PER PHARMACY IV NR ×4 (20:00)
[2022-09-16] MEDS: PANTOPRAZOLE 40 MG/10 ML VIAL INJ IV SCH (21:18)
[2022-09-17] VITALS (103 sets, daily range): BP systolic 86–167; BP diastolic 45–84
[2022-09-17] MEDS: fentaNYL Drip 2500mCg/250mlNS 250 ML IV SCH ×2 (00:15→20:12)
[2022-09-17] MEDS: PROPOFOL 100 ML IV SCH ×4 (01:37→20:51)
[2022-09-17] MEDS: LACTULOSE 20Gm/30ML SOLN PO SCH ×6 (02:59→22:25)
[2022-09-17] MEDS: InsuLIN REG 1unit/0.01ml Soln (100units/ml) SC SCH ×6 (04:00→23:35)
[2022-09-17 04:03] LABS: Hematocrit 34.1 % (41.0-53.0); Hemoglobin 11.6 g/dL (13.5-17.5); Mean Corpuscular Hemoglobin 31.5 pg (28.0-32.0); Mean Corpuscular Volume 92.7 fL (80.0-100.0); Red Blood Cells 3.68 10^6/uL (4.5-5.90); Red Cell Distribution Width 15.6 % (11.8-14.3); White Blood Cell 17.1 10^3/uL (4.4-10.8)
[2022-09-17 04:29] LABS: Basophils % (manual) 0 (0.0-2.0); Blast Cells 0; Eosinophils % (manual) 0 (0-7); Metamyelocytes % 0; Myelocytes % 0; Promyelocytes % 0; Reactive Lymphocytes 0
[2022-09-17 04:34] LABS: Albumin 2.5 g/dL (3.4-5.0); Calcium 7.7 mg/dL (8.5-10.1); Magnesium 3.4 mg/dL (1.6-2.6)
[2022-09-17 04:46] LABS: BUN/Creatinine Ratio 14.7 (10.0-20.0); Bilirubin, Total 15.2 mg/dL (0.2-1.0); Total Protein 7.1 g/dL (6.4-8.2)
[2022-09-17] MEDS: ACCU-CHEK COMFORT CURVE STRIP VI SCH ×6 (04:56→23:37)
[2022-09-17 05:11] LABS: Phosphorus 9.5 mg/dL (2.5-4.90)
[2022-09-17 05:26] LABS: Band Neutrophils % (manual) 7; Lymphocytes % (manual) 4 (10.0-50.0); Monocytes % (manual) 6 (0-12)
[2022-09-17] MEDS: METOCLOPRAMIDE HCL 5MG/ml INJ 2ml VIAL IV SCH ×3 (06:09→22:23)
[2022-09-17] MEDS: MIDODRINE HCL 10 MG TAB NG SCH ×3 (06:09→22:25)
[2022-09-17] MEDS: OCTREOTIDE ACETATE 100 MCG/ML VL SUBCUT SCH ×3 (06:09→22:25)
[2022-09-17] MEDS ORDERED: SODIUM CHL 0.9% 1000 ML BAG XX ONE (07:00)
[2022-09-17] MEDS: ALBUMIN 25% 100 ML IV SCH ×2 (08:24→09:40)
[2022-09-17] MEDS: PANTOPRAZOLE 40 MG/10 ML VIAL INJ IV SCH ×2 (11:00→22:23)
[2022-09-17] MEDS: FUROSEMIDE 40 MG/4 ML VIAL IV SCH (11:00)
[2022-09-17] MEDS: MEROPENEM 1 GM in SODIUM CHL 0.9% 100 ML IV SCH (17:53)
[2022-09-17] MEDS: IPRATROPIUM BROM 0.5 MG/2.5ML INH SOL NEB PRN ×2 (18:29→22:23)
[2022-09-17] MEDS: ALBUTEROL SULF 2.5 MG/0.5ML(0.5%) NEB SOLN NEB PRN ×2 (18:29→22:23)
[2022-09-17] MEDS ORDERED: CALCIUM ACETATE 667 MG CAP PO ONE (18:45)
[2022-09-17] MEDS: TPN PER PHARMACY IV NR ×4 (20:21)
[2022-09-18] VITALS (106 sets, daily range): BP systolic 71–138; BP diastolic 47–77
[2022-09-18] MEDS: LACTULOSE 20Gm/30ML SOLN PO SCH ×6 (01:27→22:00)
[2022-09-18] MEDS: PROPOFOL 100 ML IV SCH ×4 (01:28→19:28)
[2022-09-18] MEDS: ALBUTEROL SULF 2.5 MG/0.5ML(0.5%) NEB SOLN NEB PRN (02:05)
[2022-09-18] MEDS: IPRATROPIUM BROM 0.5 MG/2.5ML INH SOL NEB PRN (02:05)
[2022-09-18] MEDS: ACCU-CHEK COMFORT CURVE STRIP VI SCH ×4 (04:00→19:42)
[2022-09-18] MEDS: InsuLIN REG 1unit/0.01ml Soln (100units/ml) SC SCH ×5 (04:00→23:52)
[2022-09-18 04:50] LABS: Albumin 2.4 g/dL (3.4-5.0); Calcium 8.3 mg/dL (8.5-10.1); Magnesium 2.9 mg/dL (1.6-2.6); Potassium 4.5 mmol/L (3.5-5.1)
[2022-09-18 04:53] LABS: BUN/Creatinine Ratio 13.7 (10.0-20.0)
[2022-09-18 05:01] LABS: Hematocrit 32.6 % (41.0-53.0); Hemoglobin 11.4 g/dL (13.5-17.5); Mean Corpuscular Hemoglobin 31.9 pg (28.0-32.0); Mean Corpuscular Hgb Conc. 34.8 g/dL (32.0-36.0); Mean Corpuscular Volume 91.5 fL (80.0-100.0); Red Blood Cells 3.57 10^6/uL (4.5-5.90); Red Cell Distribution Width 15.7 % (11.8-14.3); White Blood Cell 15.6 10^3/uL (4.4-10.8)
[2022-09-18 05:05] LABS: Basophils % (manual) 0 (0.0-2.0); Blast Cells 0; Metamyelocytes % 0; Myelocytes % 0; Promyelocytes % 0; Reactive Lymphocytes 0
[2022-09-18 05:07] LABS: Bilirubin, Total 15.2 mg/dL (0.2-1.0); Phosphorus 7.7 mg/dL (2.5-4.90); Total Protein 7.1 g/dL (6.4-8.2)
[2022-09-18] MEDS: METOCLOPRAMIDE HCL 5MG/ml INJ 2ml VIAL IV SCH ×3 (06:37→22:00)
[2022-09-18] MEDS: MIDODRINE HCL 10 MG TAB NG SCH ×3 (06:38→22:01)
[2022-09-18] MEDS: OCTREOTIDE ACETATE 100 MCG/ML VL SUBCUT SCH ×3 (06:38→22:00)
[2022-09-18 07:24] LABS: Band Neutrophils % (manual) 4; Eosinophils % (manual) 1 (0-7); Lymphocytes % (manual) 7 (10.0-50.0); Monocytes % (manual) 9 (0-12)
[2022-09-18] MEDS: CALCIUM ACETATE 667 MG CAP PO SCH ×3 (08:52→19:42)
[2022-09-18] MEDS: PANTOPRAZOLE 40 MG/10 ML VIAL INJ IV SCH ×2 (09:05→22:00)
[2022-09-18] MEDS: FUROSEMIDE 40 MG/4 ML VIAL IV SCH (09:05)
[2022-09-18] MEDS: NOREPINEPHRINE 8 MG/250ML KIT 250 ML IV SCH ×2 (11:38→15:15)
[2022-09-18] MEDS ORDERED: DEXTROSE (50%) 50ML SYRG IV PRN (14:00)
[2022-09-18] MEDS: fentaNYL Drip 2500mCg/250mlNS 250 ML IV SCH (15:50)
[2022-09-18] MEDS ORDERED: VANCOMYCIN 500 MG in D5W 5% 100 ML IV ONE (16:00)
[2022-09-18] MEDS: MEROPENEM 1GM IVPB 100 ML IV SCH (18:09)
[2022-09-18] MEDS: TPN PER PHARMACY IV NR ×4 (19:56)
[2022-09-18] MEDS ORDERED: TPN*HIGH CONC* PER PHARMACY IV NR ×4 (20:00)
[2022-09-19] VITALS (108 sets, daily range): BP systolic 93–136; BP diastolic 55–78
[2022-09-19] MEDS: ACCU-CHEK COMFORT CURVE STRIP VI SCH ×4 (00:05→17:42)
[2022-09-19] MEDS: PROPOFOL 100 ML IV SCH ×4 (00:05→17:45)
[2022-09-19 04:20] LABS: Potassium 4.6 mmol/L (3.5-5.1)
[2022-09-19 04:28] LABS: Albumin 2.4 g/dL (3.4-5.0); BUN/Creatinine Ratio 15.1 (10.0-20.0); Bilirubin, Total 15.8 mg/dL (0.2-1.0); Calcium 8.5 mg/dL (8.5-10.1); Magnesium 3.2 mg/dL (1.6-2.6); Total Protein 7.3 g/dL (6.4-8.2)
[2022-09-19 04:34] LABS: Hematocrit 33.7 % (41.0-53.0); Hemoglobin 11.5 g/dL (13.5-17.5); Mean Corpuscular Hemoglobin 31.7 pg (28.0-32.0); Mean Corpuscular Hgb Conc. 34.2 g/dL (32.0-36.0); Mean Corpuscular Volume 92.7 fL (80.0-100.0); Red Blood Cells 3.64 10^6/uL (4.5-5.90); Red Cell Distribution Width 15.8 % (11.8-14.3); White Blood Cell 14.7 10^3/uL (4.4-10.8)
[2022-09-19 04:44] LABS: Basophils % (manual) 0 (0.0-2.0); Blast Cells 0; Eosinophils % (manual) 0 (0-7); Metamyelocytes % 0; Myelocytes % 0; Promyelocytes % 0; Reactive Lymphocytes 0
[2022-09-19 04:52] LABS: Phosphorus 8.4 mg/dL (2.5-4.90)
[2022-09-19] MEDS: InsuLIN REG 1unit/0.01ml Soln (100units/ml) SC SCH ×3 (06:00→17:49)
[2022-09-19] MEDS: OCTREOTIDE ACETATE 100 MCG/ML VL SUBCUT SCH ×3 (06:11→22:39)
[2022-09-19] MEDS: LACTULOSE 20Gm/30ML SOLN PO SCH ×6 (06:11→22:19)
[2022-09-19] MEDS: METOCLOPRAMIDE HCL 5MG/ml INJ 2ml VIAL IV SCH ×3 (06:11→22:18)
[2022-09-19] MEDS: MIDODRINE HCL 10 MG TAB NG SCH ×3 (06:11→22:19)
[2022-09-19] MEDS: ALBUMIN 25% 100 ML IV PRN ×2 (06:55→07:55)
[2022-09-19] MEDS: CALCIUM ACETATE 667 MG CAP PO SCH ×3 (08:00→17:41)
[2022-09-19 08:28] LABS: Band Neutrophils % (manual) 4; Lymphocytes % (manual) 9 (10.0-50.0); Monocytes % (manual) 8 (0-12)
[2022-09-19] MEDS: PANTOPRAZOLE 40 MG/10 ML VIAL INJ IV SCH ×2 (10:50→22:18)
[2022-09-19] MEDS: FUROSEMIDE 40 MG/4 ML VIAL IV SCH ×2 (10:51→20:38)
[2022-09-19] MEDS: NOREPINEPHRINE 8 MG/250ML KIT 250 ML IV SCH (15:15)
[2022-09-19] MEDS: MEROPENEM 1GM IVPB 100 ML IV SCH (17:42)
[2022-09-19] MEDS: fentaNYL Drip 2500mCg/250mlNS 250 ML IV SCH (19:00)
[2022-09-19] MEDS ORDERED: TPN*HIGH CONC* PER PHARMACY IV NR ×4 (20:00)
[2022-09-19] MEDS ORDERED: EPOETIN ALFA-EPBX 4,000 UNIT/ML VIAL SC ONE (21:00)
[2022-09-20] VITALS (102 sets, daily range): BP systolic 79–150; BP diastolic 49–82
[2022-09-20] MEDS: ACCU-CHEK COMFORT CURVE STRIP VI SCH ×5 (00:50→23:22)
[2022-09-20] MEDS: LACTULOSE 20Gm/30ML SOLN PO SCH ×6 (02:45→21:54)
[2022-09-20] MEDS: PROPOFOL 100 ML IV SCH ×3 (02:47→20:02)
[2022-09-20 04:53] LABS: Hematocrit 31.5 % (41.0-53.0); Hemoglobin 11.1 g/dL (13.5-17.5); Mean Corpuscular Hemoglobin 32.1 pg (28.0-32.0); Mean Corpuscular Hgb Conc. 35.2 g/dL (32.0-36.0); Mean Corpuscular Volume 91.2 fL (80.0-100.0); Red Blood Cells 3.45 10^6/uL (4.5-5.90); Red Cell Distribution Width 15.8 % (11.8-14.3); White Blood Cell 11.8 10^3/uL (4.4-10.8)
[2022-09-20 05:04] LABS: Basophils % (manual) 0 (0.0-2.0); Blast Cells 0; Metamyelocytes % 0; Myelocytes % 0; Promyelocytes % 0
[2022-09-20 05:07] LABS: Albumin 2.4 g/dL (3.4-5.0); Calcium 8.4 mg/dL (8.5-10.1); Magnesium 2.8 mg/dL (1.6-2.6); Potassium 3.6 mmol/L (3.5-5.1)
[2022-09-20 05:30] LABS: Bilirubin, Total 15.6 mg/dL (0.2-1.0); Phosphorus 6.4 mg/dL (2.5-4.90); Total Protein 7.2 g/dL (6.4-8.2)
[2022-09-20] MEDS: MIDODRINE HCL 10 MG TAB NG SCH ×3 (05:59→21:55)
[2022-09-20] MEDS: METOCLOPRAMIDE HCL 5MG/ml INJ 2ml VIAL IV SCH ×3 (05:59→21:55)
[2022-09-20] MEDS: FUROSEMIDE 40 MG/4 ML VIAL IV SCH (05:59)
[2022-09-20] MEDS: InsuLIN REG 1unit/0.01ml Soln (100units/ml) SC SCH ×5 (06:00→23:22)
[2022-09-20] MEDS: OCTREOTIDE ACETATE 100 MCG/ML VL SUBCUT SCH ×3 (06:00→21:55)
[2022-09-20] MEDS: ALBUTEROL SULF 2.5 MG/0.5ML(0.5%) NEB SOLN NEB PRN (06:45)
[2022-09-20] MEDS: IPRATROPIUM BROM 0.5 MG/2.5ML INH SOL NEB PRN (06:45)
[2022-09-20 07:19] LABS: Band Neutrophils % (manual) 1; Eosinophils % (manual) 1 (0-7); Lymphocytes % (manual) 8 (10.0-50.0); Monocytes % (manual) 7 (0-12); Reactive Lymphocytes 1
[2022-09-20] MEDS: CALCIUM ACETATE 667 MG CAP PO SCH ×3 (08:30→18:10)
[2022-09-20] MEDS: PANTOPRAZOLE 40 MG/10 ML VIAL INJ IV SCH ×2 (09:24→21:55)
[2022-09-20] MEDS: NOREPINEPHRINE 8 MG/250ML KIT 250 ML IV SCH (15:15)
[2022-09-20] MEDS: fentaNYL Drip 2500mCg/250mlNS 250 ML IV SCH ×2 (15:45→20:01)
[2022-09-20] MEDS ORDERED: VANCOMYCIN 500 MG in D5W 5% 100 ML IV ONE (16:00)
[2022-09-20] MEDS: MEROPENEM 1GM IVPB 100 ML IV SCH (18:10)
[2022-09-20] MEDS ORDERED: TPN*HIGH CONC* PER PHARMACY IV NR ×4 (20:00)
[2022-09-21] VITALS (96 sets, daily range): BP systolic 79–211; BP diastolic 49–95
[2022-09-21] MEDS: LACTULOSE 20Gm/30ML SOLN PO SCH ×6 (01:24→22:00)
[2022-09-21 04:19] LABS: Albumin 2.2 g/dL (3.4-5.0); Calcium 8.4 mg/dL (8.5-10.1); Magnesium 2.9 mg/dL (1.6-2.6); Potassium 4.2 mmol/L (3.5-5.1)
[2022-09-21 04:23] LABS: BUN/Creatinine Ratio 14.2 (10.0-20.0); Bilirubin, Total 15.4 mg/dL (0.2-1.0); Phosphorus 7.1 mg/dL (2.5-4.90)
[2022-09-21 04:27] LABS: INR 1.08 (0.9-1.15); Partial Thromboplastin Time 35.1 sec (24.6-33.4)
[2022-09-21] MEDS: ACCU-CHEK COMFORT CURVE STRIP VI SCH ×3 (04:59→17:52)
[2022-09-21] MEDS: METOCLOPRAMIDE HCL 5MG/ml INJ 2ml VIAL IV SCH ×3 (04:59→22:27)
[2022-09-21] MEDS: MIDODRINE HCL 10 MG TAB NG SCH ×3 (04:59→22:27)
[2022-09-21] MEDS: OCTREOTIDE ACETATE 100 MCG/ML VL SUBCUT SCH ×3 (05:00→22:28)
[2022-09-21] MEDS: PROPOFOL 100 ML IV SCH (05:01)
[2022-09-21] MEDS: InsuLIN REG 1unit/0.01ml Soln (100units/ml) SC SCH ×3 (05:39→17:52)
[2022-09-21] MEDS ORDERED: SODIUM CHL 0.9% 1000 ML BAG XX ONE (07:00)
[2022-09-21] MEDS: ENOXAPARIN SOD 30 MG/0.3 ML SYRINGE SC SCH (10:35)
[2022-09-21] MEDS: FUROSEMIDE 40 MG/4 ML VIAL IV SCH (10:35)
[2022-09-21] MEDS: PANTOPRAZOLE 40 MG/10 ML VIAL INJ IV SCH ×2 (10:35→22:27)
[2022-09-21] MEDS: CALCIUM ACETATE 667 MG CAP PO SCH ×3 (10:35→17:50)
[2022-09-21] MEDS: NOREPINEPHRINE 8 MG/250ML KIT 250 ML IV SCH (15:15)
[2022-09-21] MEDS: MEROPENEM 1GM IVPB 100 ML IV SCH (17:50)
[2022-09-21] MEDS ORDERED: TPN*HIGH CONC* PER PHARMACY IV NR ×4 (20:00)
[2022-09-21 20:26] LABS: Hematocrit 32.9 % (41.0-53.0); Hemoglobin 11.4 g/dL (13.5-17.5)
[2022-09-21] MEDS ORDERED: EPOETIN ALFA-EPBX 4,000 UNIT/ML VIAL SC ONE (21:00)
[2022-09-22] VITALS (92 sets, daily range): BP systolic 79–226; BP diastolic 48–115
[2022-09-22] MEDS: ACCU-CHEK COMFORT CURVE STRIP VI SCH ×4 (00:24→17:41)
[2022-09-22] MEDS: PROPOFOL 100 ML IV SCH ×3 (00:30→21:30)
[2022-09-22] MEDS: LACTULOSE 20Gm/30ML SOLN PO SCH ×6 (02:00→22:00)
[2022-09-22 03:47] LABS: Albumin 2.2 g/dL (3.4-5.0); Calcium 8.7 mg/dL (8.5-10.1); Magnesium 2.4 mg/dL (1.6-2.6); Potassium 3.1 mmol/L (3.5-5.1)
[2022-09-22 03:52] LABS: BUN/Creatinine Ratio 12.8 (10.0-20.0); Bilirubin, Total 14.1 mg/dL (0.2-1.0); Phosphorus 5.3 mg/dL (2.5-4.90); Total Protein 7.2 g/dL (6.4-8.2)
[2022-09-22] MEDS: InsuLIN REG 1unit/0.01ml Soln (100units/ml) SC SCH ×4 (06:00→17:52)
[2022-09-22] MEDS: METOCLOPRAMIDE HCL 5MG/ml INJ 2ml VIAL IV SCH ×3 (06:31→22:21)
[2022-09-22] MEDS: MIDODRINE HCL 10 MG TAB NG SCH ×3 (06:32→22:21)
[2022-09-22] MEDS: OCTREOTIDE ACETATE 100 MCG/ML VL SUBCUT SCH ×3 (06:35→22:22)
[2022-09-22] MEDS ORDERED: POTASSIUM CHL 20MEQ/100ML 100 ML IV ONE (11:00)
[2022-09-22] MEDS: ENOXAPARIN SOD 30 MG/0.3 ML SYRINGE SC SCH (11:09)
[2022-09-22] MEDS: FUROSEMIDE 40 MG/4 ML VIAL IV SCH (11:10)
[2022-09-22] MEDS: PANTOPRAZOLE 40 MG/10 ML VIAL INJ IV SCH ×2 (11:10→22:20)
[2022-09-22] MEDS: CALCIUM ACETATE 667 MG CAP PO SCH ×3 (12:00→17:41)
[2022-09-22] MEDS: NOREPINEPHRINE 8 MG/250ML KIT 250 ML IV SCH (15:15)
[2022-09-22] MEDS ORDERED: VANCOMYCIN 500 MG in D5W 5% 100 ML IV ONE (17:00)
[2022-09-22] MEDS: fentaNYL Drip 2500mCg/250mlNS 250 ML IV SCH (17:27)
[2022-09-22] MEDS: MEROPENEM 1GM IVPB 100 ML IV SCH (17:41)
[2022-09-22] MEDS: ALBUTEROL SULF 2.5 MG/0.5ML(0.5%) NEB SOLN NEB PRN ×2 (18:24→22:02)
[2022-09-22] MEDS: IPRATROPIUM BROM 0.5 MG/2.5ML INH SOL NEB PRN ×2 (18:24→22:02)
[2022-09-22] MEDS ORDERED: TPN*HIGH CONC* PER PHARMACY IV NR ×5 (20:00)
[2022-09-23] VITALS (94 sets, daily range): BP systolic 65–155; BP diastolic 36–83
[2022-09-23] MEDS: LACTULOSE 20Gm/30ML SOLN PO SCH ×4 (02:00→14:00)
[2022-09-23] MEDS: ALBUTEROL SULF 2.5 MG/0.5ML(0.5%) NEB SOLN NEB PRN ×4 (02:15→13:53)
[2022-09-23] MEDS: IPRATROPIUM BROM 0.5 MG/2.5ML INH SOL NEB PRN ×4 (02:16→13:53)
[2022-09-23] MEDS: PROPOFOL 100 ML IV SCH ×3 (02:55→13:52)
[2022-09-23 04:24] LABS: Calcium 8.3 mg/dL (8.5-10.1); Magnesium 2.3 mg/dL (1.6-2.6); Potassium 3.4 mmol/L (3.5-5.1)
[2022-09-23 04:29] LABS: BUN/Creatinine Ratio 13.4 (10.0-20.0); Bilirubin, Total 10.6 mg/dL (0.2-1.0); Phosphorus 4.4 mg/dL (2.5-4.90); Total Protein 7.2 g/dL (6.4-8.2)
[2022-09-23] MEDS: InsuLIN REG 1unit/0.01ml Soln (100units/ml) SC SCH ×3 (06:00→12:00)
[2022-09-23] MEDS: METOCLOPRAMIDE HCL 5MG/ml INJ 2ml VIAL IV SCH ×2 (06:07→14:48)
[2022-09-23] MEDS: MIDODRINE HCL 10 MG TAB NG SCH ×2 (06:08→14:49)
[2022-09-23] MEDS: OCTREOTIDE ACETATE 100 MCG/ML VL SUBCUT SCH ×2 (06:09→14:49)
[2022-09-23] MEDS: ACCU-CHEK COMFORT CURVE STRIP VI SCH ×3 (06:09→13:20)
[2022-09-23] MEDS: CALCIUM ACETATE 667 MG CAP PO SCH ×2 (08:29→13:20)
[2022-09-23] MEDS ORDERED: POTASSIUM CHL 20MEQ/100ML 100 ML IV ONE (09:15)
[2022-09-23] MEDS: FUROSEMIDE 40 MG/4 ML VIAL IV SCH (10:41)
[2022-09-23] MEDS: ENOXAPARIN SOD 30 MG/0.3 ML SYRINGE SC SCH (10:42)
[2022-09-23] MEDS: PANTOPRAZOLE 40 MG/10 ML VIAL INJ IV SCH (10:42)
[2022-09-23] MEDS: NOREPINEPHRINE 8 MG/250ML KIT 250 ML IV SCH (13:53)
[2022-09-23] MEDS ORDERED: HYOSCYAMINE SULF 0.125 MG ODT TAB PO PRN (16:00)
[2022-09-23] MEDS ORDERED: HYDROmorphone HCL 2 MG/ML VL/or syr IV PRN (16:00)
[2022-09-23] MEDS: LORazepam 2MG/ML-1ML VIAL IV PRN ×4 (19:07→23:29)
[2022-09-23] MEDS ORDERED: TPN*HIGH CONC* PER PHARMACY IV NR ×5 (20:00)
[2022-09-23] MEDS: HYDROmorphone HCL 2 MG/ML VL/or syr IV PRN ×3 (20:27→23:30)
[2022-09-24] MEDS ORDERED: SODIUM CHL 0.9% 1000 ML BAG XX ONE (07:00)
[2022-09-24] MEDS ORDERED: EPOETIN ALFA-EPBX 4,000 UNIT/ML VIAL SC ONE (21:00)
== END 2022-09-24 00:16 | DRG 720 ==
LOC: EDBD 00:23 → ER 00:23 → TELE 05:15 → ICU WEST 15:11
PROVIDERS: ADMIT Nurse Practitioner Family; ATTEND Internal Medicine
PROC: 5A1955Z Respiratory Ventilation, Greater than 96 Consecutive Hours (ICD-10-PCS; principal; 2022-09-09)
PROC: 0BH17EZ Insertion of Endotracheal Airway into Trachea, Via Natural or Artificial Opening (ICD-10-PCS; 2022-09-09)
PROC: 5A09357 Assistance with Respiratory Ventilation, Less than 24 Consecutive Hours, Continuous Positive Airway Pressure (ICD-10-PCS; 2022-09-09)
PROC: 05HM33Z Insertion of Infusion Device into Right Internal Jugular Vein, Percutaneous Approach (ICD-10-PCS; 2022-09-11)
PROC: 5A1D70Z Performance of Urinary Filtration, Intermittent, Less than 6 Hours Per Day (ICD-10-PCS; 2022-09-12)
PROC: 5A1D70Z Performance of Urinary Filtration, Intermittent, Less than 6 Hours Per Day (ICD-10-PCS; 2022-09-13)
PROC: 5A1D70Z Performance of Urinary Filtration, Intermittent, Less than 6 Hours Per Day (ICD-10-PCS; 2022-09-14)
PROC: 5A1D70Z Performance of Urinary Filtration, Intermittent, Less than 6 Hours Per Day (ICD-10-PCS; 2022-09-17)
PROC: 05HM33Z Insertion of Infusion Device into Right Internal Jugular Vein, Percutaneous Approach (ICD-10-PCS; 2022-09-18)
PROC: B543ZZA Ultrasonography of Right Jugular Veins, Guidance (ICD-10-PCS; 2022-09-18)
PROC: 5A1D70Z Performance of Urinary Filtration, Intermittent, Less than 6 Hours Per Day (ICD-10-PCS; 2022-09-19)
PROC: 5A1D70Z Performance of Urinary Filtration, Intermittent, Less than 6 Hours Per Day (ICD-10-PCS; 2022-09-21)
DX: A41.89 Other specified sepsis (principal); K72.00 Acute and subacute hepatic failure without coma; N17.0 Acute kidney failure with tubular necrosis; J96.01 Acute respiratory failure with hypoxia; K76.7 Hepatorenal syndrome; J15.212 Pneumonia due to Methicillin resistant Staphylococcus aureus; G92.8 Other toxic encephalopathy; R65.21 Severe sepsis with septic shock; D68.9 Coagulation defect, unspecified; I50.43 Acute on chronic combined systolic (congestive) and diastolic (congestive) heart failure; E87.1 Hypo-osmolality and hyponatremia; K76.82 Hepatic encephalopathy; Z66 Do not resuscitate; J15.4 Pneumonia due to other streptococci; N18.5 Chronic kidney disease, stage 5; Z51.5 Encounter for palliative care; Z99.2 Dependence on renal dialysis; K92.2 Gastrointestinal hemorrhage, unspecified; K74.60 Unspecified cirrhosis of liver; R77.8 Other specified abnormalities of plasma proteins; L03.116 Cellulitis of left lower limb; I13.2 Hypertensive heart and chronic kidney disease with heart failure and with stage 5 chronic kidney disease, or end stage renal disease; K82.8 Other specified diseases of gallbladder; E16.2 Hypoglycemia, unspecified; F17.210 Nicotine dependence, cigarettes, uncomplicated; I25.10 Atherosclerotic heart disease of native coronary artery without angina pectoris; I48.92 Unspecified atrial flutter; Z82.3 Family history of stroke
CPT/HCPCS: 36415; 36600; 71045; 74018; 74176; 76705; 80048; 80053; 80074; 80076; 80202; 80307; 80320; 81001; 82140; 82533; 82550; 82553; 82728; 82805; 82962; 83540; 83550; 83605; 83735; 83880; 84100; 84439; 84443; 84478; 84484; 85007; 85014; 85018; 85025; 85027; 85379; 85610; 85730; 87040; 87070; 87077; 87081; 87186; 87205; 90935; 93005; 93306; 93925; 93970; 94002; 94003; 94640; 94644; 94660; 96365; 96375; 96379; C9113; G0378; J0171; J1100; J1642; J1885; J2185; J2405; J2543; J2704; J3480; J7060; J7131; P9047